=== PATIENT | female | born 1990 | race Caucasian/White ===

== ENCOUNTER 2017-12-03 09:50 | Emergency (ER) | payer OTHER, MEDICAID ==
[~2017-12-03] VITALS: Ht 160 cm; Wt 93.9 kg
[~2017-12-03 09:50] MED LIST: ACETAMINOPHEN-1 EAC1 PO; AMOXICILLIN 50500 MG PO; AMOXICILLIN500 M1 PO; BACTRIM DS TAB1 EACH PO; CIPROFLOXIN HC2.5 M1 OTIC; CLEOCIN HCL150 MG PO; CORTISPORIN OTI10 M2 OTIC; FLAGYL500 MG; HYDROCODONE-ACE15 ML PO; HYDROCODONE-APA1 TA1 PO; IBUPROFEN 800800 M1 PO; LIDOCAINE VISC100 M1 MM; NOHOMEMEDICATIONS; NORCO 5-325 TA1 EAC1 PO; NYSTATIN 1100000 U/M SWISH&SPIT; ONDANSETRON HCL4 M2 PO; PENICILLIN VK250 MG PO; PERIDEX 0.12%473 M1 SSP; PHENERGAN 25 MG25 M1 PO; PREDNISONE 10 M10 MG PO; PROMETHAZINE-D120 ML PO; PROMS25 WY RECTAL; PROTONIX 20 MG20 M1 PO; TOPAMAX 100 MG100 MG; TORADOL 10 MG T10 MG PO; TRAMADOL 50 MG50 MG PO; VENTOLIN HFA INH8 GM IH; ZOFRAN ODT4 MG PO; ZOFRAN4 MG PO
[2017-12-03 09:58] VITALS: BP 120/64
[2017-12-03] MEDS ORDERED: AMOXICILLIN 50500 MG PO (10:05)
[2017-12-03] MEDS ORDERED: PREDNISONE 20 M20 M1 PO (10:05)
== END 2017-12-03 10:14 | disposition home or self-care (01) ==
LOC: M.ERS 09:50
DX: J06.9 Acute upper respiratory infection, unspecified (principal); Z88.1 Allergy status to other antibiotic agents; Z88.2 Allergy status to sulfonamides; Z91.040 Latex allergy status

== ENCOUNTER 2018-05-22 08:29 | Emergency (ER) | payer OTHER, MEDICAID ==
[~2018-05-22] VITALS: Ht 160 cm; Wt 100.3 kg
[~2018-05-22 08:29] MED LIST changes: +PREDNISONE 20 M20 M1 PO
[2018-05-22 09:27] LABS: ABSOLUTE BASOPHILS 0.1 thou/uL (0.0-0.2); ABSOLUTE EOSINOPHILS 0.3 thou/uL (0.0-0.7); ABSOLUTE LYMPHOCYTES 2.4 thou/uL (0.8-5.3); ABSOLUTE MONOCYTES 0.6 thou/uL (0.0-1.2); ABSOLUTE NEUTROPHILS 6.3 thou/uL (1.6-8.1); BASOPHILS 0.7 %; EOSINOPHILS 3.1 %; HEMATOCRIT 42.1 % (37.0-47.0); HEMOGLOBIN 13.8 gm/dL (12.0-15.0); LYMPHOCYTES 24.6 %; MCH 25.1 pg (26.0-34.0); MCHC 32.9 g/dL (28.0-37.0); MCV 76.3 fL (80.0-100.0); MONOCYTES 6.6 %; MPV 8.3 fl. (7.2-11.1); NUCLEATED RBCS 0 /100WBC; PLATELET COUNT* 248 thou/uL (150-400); RBC 5.52 mil/uL (4.20-5.00); RDW-CV 16.5 % (10.5-14.5); WBC 9.6 thou/uL (4.0-11.0)
[2018-05-22 09:28] LABS: URINE BILIRUBIN NEGATIVE (Negative); URINE BLOOD NEGATIVE (Negative); URINE CLARITY CLEAR; URINE COLOR YELLOW; URINE GLUCOSE-RANDOM NEGATIVE (Negative); URINE KETONES NEGATIVE (Negative); URINE LEUKOCYTES-REFLEX NEGATIVE (Negative); URINE NITRITE-REFLEX NEGATIVE (Negative); URINE PROTEIN NEGATIVE (Negative); URINE SPECIFIC GRAVITY <= 1.005 (1.005-1.030); URINE UROBILINOGEN 0.2 E.U./dl (0.2-1.0)
[2018-05-22 09:29] LABS: CALCIUM 10.7 mg/dL (8.5-10.1); CREATININE 0.8 mg/dL (0.6-1.3); POTASSIUM 3.8 mmol/L (3.5-5.1)
[2018-05-22 09:34] LABS: ALBUMIN 3.6 g/dL (3.4-5.0); TOTAL BILIRUBIN 0.4 mg/dL (<0.1-1.0); TOTAL PROTEIN 7.6 g/dL (6.4-8.2)
[2018-05-22 09:35] LABS: AMP/METHAMP Negative (Negative); BARBITURATES Negative (Negative); BENZODIAZEPINES Negative (Negative); COCAINE Negative (Negative); METHADONE Negative (Negative); OPIATES Negative (Negative); PCP Negative (Negative); THC Negative (Negative)
--- NOTE | 2018-05-22 10:57 | EKG ---
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
[2018-05-22] MEDS ORDERED: PREDNISONE50 MG PO (11:03)
[2018-05-22] MEDS ORDERED: TORADOL 10 MG T10 MG PO (11:03)
[2018-05-22 11:18] VITALS: BP 113/70
== END 2018-05-22 11:19 | disposition home or self-care (01) ==
LOC: M.ERS 08:29
PROVIDERS: Personal Emergency Response Attendant
DX: R09.1 Pleurisy (principal); N18.9 Chronic kidney disease, unspecified; F17.210 Nicotine dependence, cigarettes, uncomplicated; Z88.1 Allergy status to other antibiotic agents; Z88.2 Allergy status to sulfonamides; Z91.040 Latex allergy status; Z90.49 Acquired absence of other specified parts of digestive tract

== ENCOUNTER 2019-06-04 19:41 | Emergency (ER) | payer OTHER ==
[~2019-06-04] VITALS: Ht 160 cm; Wt 97.5 kg
[~2019-06-04 19:41] MED LIST changes: +PREDNISONE50 MG PO
[2019-06-04] MEDS ORDERED: TOPAMAX 100 MG100 MG PO (20:09)
[2019-06-04] MEDS ORDERED: DOXYCYCLINE 10100 MG PO (20:50)
[2019-06-04] MEDS ORDERED: KETOCONAZOLE15 GM TOP (20:50)
[2019-06-04 21:23] VITALS: BP 138/87
== END 2019-06-04 21:20 | disposition home or self-care (01) ==
LOC: M.ERS 19:41
DX: L30.8 Other specified dermatitis (principal); Z98.890 Other specified postprocedural states; Z98.51 Tubal ligation status; Z90.49 Acquired absence of other specified parts of digestive tract; N18.9 Chronic kidney disease, unspecified; F17.210 Nicotine dependence, cigarettes, uncomplicated; Z88.2 Allergy status to sulfonamides; Z88.1 Allergy status to other antibiotic agents; Z91.040 Latex allergy status

== ENCOUNTER 2019-12-02 15:02 | Emergency (ER) | payer OTHER ==
[~2019-12-02] VITALS: Ht 160 cm; Wt 98.4 kg
[~2019-12-02 15:02] MED LIST changes: +DOXYCYCLINE 10100 MG PO; +KETOCONAZOLE15 GM TOP; +TOPAMAX 100 MG100 MG PO
[2019-12-02 15:40] LABS: URINE BILIRUBIN NEGATIVE (Negative); URINE BLOOD NEGATIVE (Negative); URINE CLARITY CLEAR; URINE COLOR YELLOW; URINE GLUCOSE-RANDOM NEGATIVE (Negative); URINE KETONES NEGATIVE (Negative); URINE LEUKOCYTES-REFLEX NEGATIVE (Negative); URINE NITRITE-REFLEX NEGATIVE (Negative); URINE PROTEIN NEGATIVE (Negative); URINE SPECIFIC GRAVITY >= 1.030 (1.005-1.030); URINE UROBILINOGEN 0.2 E.U./dl (0.2-1.0)
[2019-12-02 16:09] LABS: ABSOLUTE BASOPHILS 0.1 thou/uL (0.0-0.2); ABSOLUTE EOSINOPHILS 0.2 thou/uL (0.0-0.7); ABSOLUTE LYMPHOCYTES 2.1 thou/uL (0.8-5.3); ABSOLUTE MONOCYTES 0.7 thou/uL (0.0-1.2); ABSOLUTE NEUTROPHILS 7.2 thou/uL (1.6-8.1); BASOPHILS 0.7 %; EOSINOPHILS 2.2 %; HEMATOCRIT 40.9 % (37.0-47.0); HEMOGLOBIN 13.7 gm/dL (12.0-15.0); LYMPHOCYTES 20.3 %; MCH 25.6 pg (26.0-34.0); MCHC 33.4 g/dL (28.0-37.0); MCV 76.7 fL (80.0-100.0); MONOCYTES 6.4 %; MPV 8.2 fl. (7.2-11.1); NUCLEATED RBCS 0 /100WBC; PLATELET COUNT* 228 thou/uL (150-400); POLYS 70.4 %; RBC 5.33 mil/uL (4.20-5.00); RDW-CV 15.5 % (10.5-14.5); WBC 10.3 thou/uL (4.0-11.0)
[2019-12-02 16:17] LABS: CALCIUM 10.6 mg/dL (8.5-10.1); CREATININE 0.9 mg/dL (0.6-1.3); POTASSIUM 3.8 mmol/L (3.5-5.1)
[2019-12-02 16:21] LABS: ALBUMIN 3.6 g/dL (3.4-5.0); TOTAL BILIRUBIN 0.3 mg/dL (<0.1-1.0); TOTAL PROTEIN 7.3 g/dL (6.4-8.2)
[2019-12-02] MEDS ORDERED: NABUMETONE 750750 M1 PO (17:44)
[2019-12-02] MEDS ORDERED: ZANAFLEX4 MG PO (17:44)
[2019-12-02] MEDS ORDERED: ONDANSETRON HCL4 M2 PO (17:44)
[2019-12-02 17:54] VITALS: BP 96/46
== END 2019-12-02 17:54 | disposition home or self-care (01) ==
LOC: M.ERS 15:02
PROVIDERS: Nurse Practitioner Family
DX: K76.0 Fatty (change of) liver, not elsewhere classified (principal); M54.5 Low back pain; R11.10 Vomiting, unspecified; F17.210 Nicotine dependence, cigarettes, uncomplicated; Z88.2 Allergy status to sulfonamides; Z88.1 Allergy status to other antibiotic agents; Z88.8 Allergy status to other drugs, medicaments and biological substances

== ENCOUNTER 2020-09-09 19:44 | Emergency (ER) | payer OTHER ==
[~2020-09-09] VITALS: Ht 160 cm; Wt 83.0 kg
[~2020-09-09 19:44] MED LIST changes: +NABUMETONE 750750 M1 PO; +ZANAFLEX4 MG PO
[2020-09-09] MEDS ORDERED: TORADOL 10 MG T10 MG PO (21:40)
[2020-09-09 21:49] VITALS: BP 122/68
== END 2020-09-09 21:49 | disposition home or self-care (01) ==
LOC: M.ERS 19:44
DX: M77.8 Other enthesopathies, not elsewhere classified (principal); Z88.2 Allergy status to sulfonamides; Z88.1 Allergy status to other antibiotic agents; Z91.040 Latex allergy status; Z98.890 Other specified postprocedural states; Z98.51 Tubal ligation status; Z90.49 Acquired absence of other specified parts of digestive tract

== ENCOUNTER 2021-05-10 09:46 | Emergency (ER) | payer OTHER ==
[~2021-05-10] VITALS: Ht 160 cm; Wt 90.7 kg
[2021-05-10 10:11] LABS: ABSOLUTE BASOPHILS 0.1 thou/uL (0.0-0.2); ABSOLUTE EOSINOPHILS 0.3 thou/uL (0.0-0.7); ABSOLUTE LYMPHOCYTES 1.8 thou/uL (0.8-5.3); ABSOLUTE MONOCYTES 0.5 thou/uL (0.0-1.2); ABSOLUTE NEUTROPHILS 5.9 thou/uL (1.6-8.1); BASOPHILS 0.6 %; EOSINOPHILS 3.5 %; HEMATOCRIT 37.7 % (37.0-47.0); MCH 26.6 pg (26.0-34.0); MCHC 34.5 g/dL (28.0-37.0); MCV 77.2 fL (80.0-100.0); MONOCYTES 5.4 %; MPV 7.6 fl. (7.2-11.1); NUCLEATED RBCS 0 /100WBC; PLATELET COUNT* 231 thou/uL (150-400); POLYS 69.5 %; RBC 4.89 mil/uL (4.20-5.00); RDW-CV 15.9 % (10.5-14.5); WBC 8.5 thou/uL (4.0-11.0)
[2021-05-10 10:21] LABS: ANION GAP 9 mmol/L (7-16); BUN 15 mg/dL (7-18); CALCIUM 10.7 mg/dL (8.5-10.1); CHLORIDE 106 mmol/L (98-107); CO2 23 mmol/L (21-32); CREATININE 0.8 mg/dL (0.6-1.3); GLUCOSE 135 mg/dL (70-99); POTASSIUM 4.2 mmol/L (3.5-5.1); SODIUM 138 mmol/L (136-145)
[2021-05-10 10:36] LABS: ALBUMIN 3.4 g/dL (3.4-5.0); ALKALINE PHOSPHATASE 93 U/L (46-116); CK-MB MASS < 0.5 ng/mL (<0.5-3.6); LIPASE 126 U/L (73-393); MAGNESIUM 2.2 mg/dL (1.8-2.4); NT-PRO BRAIN NAT PEPTIDE 33 pg/mL (<300); SGOT 8 U/L (15-37); SGPT 14 U/L (30-65); TOTAL BILIRUBIN 0.3 mg/dL (<0.1-1.0); TOTAL PROTEIN 7.1 g/dL (6.4-8.2)
[2021-05-10 10:56] VITALS: BP 115/75
--- NOTE | 2021-05-10 15:23 | EKG ---
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 05/10/21 1522 0952 0952 Parker Beltran MD, [facility] /EPI
== END 2021-05-10 10:57 | disposition home or self-care (01) ==
LOC: M.ERS 09:46
PROVIDERS: Family Medicine
DX: R07.89 Other chest pain (principal); N18.9 Chronic kidney disease, unspecified; F17.210 Nicotine dependence, cigarettes, uncomplicated; Z88.1 Allergy status to other antibiotic agents; Z88.2 Allergy status to sulfonamides; Z91.040 Latex allergy status; Z98.890 Other specified postprocedural states; Z98.51 Tubal ligation status; Z90.49 Acquired absence of other specified parts of digestive tract